=== PATIENT | female | born 1970 | race Caucasian/White ===

== ENCOUNTER 2017-12-17 12:21 | Emergency (ER) | payer OTHER ==
[2017-12-17 12:21] VITALS: BMI 29.2
[2017-12-17 12:28] VITALS: TEMP 97.8; O2SAT 98
[2017-12-17 12:31] VITALS: RESP 18
[2017-12-17] MEDS ORDERED: Sodium Chloride 0.9% 1,000 ML IV SCH (13:15)
[2017-12-17 13:23] LABS: BASO # 0.04 K/mm3 (0.0-2.0); BASO % 0.4 % (0.0-3.0); EOS # 0.6 (0.0-0.7); EOS % 6.2 % (1.5-5.0); GRAN # 5.23 (1.4-6.5); GRAN % 53.6 % (50.0-68.0); HEMOGLOBIN 13.1 g/dL (12.0-16.0); LYMPH # 3.5 (1.2-3.4); LYMPH % 35.6 % (22.0-35.0); MEAN CELL VOLUME 76.4 fl (80.0-105.0); MEAN PLATELET VOLUME 9.5 fl (7.0-11.0); MONO # 0.4 (0.1-0.6); MONO % 4.2 % (1.0-6.0); RBC 5.04 10^6/uL (3.5-6.1); RED CELL DISTRIBUTION WIDTH 13.3 % (11.5-14.5); WHITE BLOOD COUNT 9.8 10^3/ul (4.5-11.0)
[2017-12-17 13:33] LABS: ALB/GLOB RATIO 1.4 (1.1-1.8); ALBUMIN 4.2 g/dL (3.0-4.8); ALT/SGPT 28 U/L (7-56); AST/SGOT 25 U/L (14-36); BLOOD UREA NITROGEN 9 mg/dL (7-21); CALCIUM 9.6 mg/dL (8.4-10.5); GFR AFRICAN-AMERICAN > 60; GFR NON-AFRICAN AMERICAN > 60
--- NOTE | 2017-12-17 13:40 | ED PDOC ---
Arrival/HPI - General Historian: Patient - Critical Care Critical Care Minutes: 30 minutes <Master Plunkett - Last Filed: 12/17/17 17:04> <Patrice Pop - Last Filed: 12/17/17 19:58> - General Chief Complaint: Headache Time Seen by Provider: 12/17/17 12:40 - Critical Care Narrative Critical Care (Text): 12/17/17 13:32 This is a 47 yo F with PMH of HTN and DM II (not on insulin) who presents with complaint of headache upon awakening, elevated BP on subsequent self-checks ( started at systolic 120's-130s, ended at 160's systolic prior to no longer being able to obtain readings), and brief episode of nausea. As per patient, awoke with the headache, which is present bilaterally frontal region, but extends to occipital region and radiates down right lateral neck. Briefly nauseous on awakening as well, but she reports resolved within several minutes, no recurrence, and did not impede her ability to tolerate PO intake this AM. Reports compliance with home BP and DM meds (as listed below), and checks her BP daily, but admits to non-compliance with daily fingersticks to monitor blood glucose. Denies any recent hypotensive episodes with BP measurements at home, denies syncope/near-syncope, diaphoresis, photo-/phono-phobia, hx migraines, tinnitus, emesis, dysuria, hematuria, constipation, diarrhea, or fevers/chills. Denies any history of hypotensive episodes or hypoglycemic episodes. All other ROS in 12-system review negative. Patient reports headache persisted from awakening to dropping child off at school, to return to home and recheck of BP with systolic of 160's. At that time, she got in contact with her PMD's office, who instructed her to present to [facility] for further workup. PMH: as above PSH: denies Fam Hx: denies Social Hx: denies tobacco, alcohol, illicits PMD: Lady (Master Plunkett) Past Medical History - Cardiac Hx Cardiac Disorders: Yes Hx Hypertension: Yes - Pulmonary Hx Respiratory Disorders: No - Neurological Hx Neurological Disorder: No - HEENT Hx HEENT Disorder: No - Renal Hx Renal Disorder: No - Endocrine/Metabolic Hx Endocrine Disorders: Yes Hx Diabetes Mellitus Type 2: Yes - Hematological/Oncological Hx Blood Disorders: No - Integumentary Hx Dermatological Disorder: No - Musculoskeletal/Rheumatological Hx Musculoskeletal Disorders: No - Gastrointestinal Hx Gastrointestinal Disorders: No - Genitourinary/Gynecological Hx Genitourinary Disorders: No - Psychiatric Hx Psychophysiologic Disorder: No Hx Substance Use: No - Surgical History Hx Section: Yes <Master Plunkett - Last Filed: 12/17/17 17:04> - Provider Review Nursing Documentation Reviewed: Yes - Travel History Have you recently traveled outside [place] w/in the past 3 mons?: No - Past History Past History: No Previous - Infectious Disease Hx of Infectious Diseases: None - Reproductive Menopause: No Currently : Unknown <Patrice Pop - Last Filed: 12/17/17 19:58> Family/Social History Family/Social History: No Known Family HX Smoking Status: Never Smoked Hx Alcohol Use: No Hx Substance Use: No <Master Plunkett - Last Filed: 12/17/17 17:04> - Physician Review Nursing Documentation Reviewed: Yes Hx Substance Use Treatment: No <Patrice Pop - Last Filed: 12/17/17 19:58> Allergies/Home Meds <Master Plunkett - Last Filed: 12/17/17 17:04> <Patrice Pop - Last Filed: 12/17/17 19:58> Allergies/Adverse Reactions: Allergies No Known Allergies Allergy (Verified 12/17/17 12:24) Home Medications: Home Meds Medication Instructions Recorded Confirmed GlipiZIDE [Glucotrol] 1 tab PO BID 08/12/13 12/17/17 Metformin HCl 1 tab PO BID 08/12/13 12/17/17 Valsartan/Hydrochlorothiazide 1 tab PO AC 08/12/13 12/17/17 [Valsartan-Hctz 160-12.5 mg Tab] SITagliptin [Januvia] 50 mg PO DAILY 12/17/17 12/17/17 Review of Systems - Physician Review All systems were reviewed & negative as marked: Yes (as per HPI) <Master Plunkett - Last Filed: 12/17/17 17:04> - Review of Systems Respiratory: absent: SOB Cardiovascular: absent: Chest Pain Gastrointestinal: absent: Abdominal Pain Neurological: Headache <Patrice Pop - Last Filed: 12/17/17 19:58> Physical Exam Vital Signs Reviewed: Yes Temperature: Afebrile Blood Pressure: Hypertensive Pulse: Regular Respiratory Rate: Normal Appearance: Positive for: Well-Appearing, Non-Toxic, Comfortable Pain Distress: Mild Mental Status: Positive for: Alert and Oriented X 3 Finger Stick Blood Glucose: 166 - Systems Exam Head: Present: Atraumatic, Normocephalic Pupils: Present: PERRL. No: Sluggish, Non-Reactive Extroacular Muscles: Present: EOMI. No: Gaze Palsy, Entrapment Conjunctiva: Present: Normal. No: Injected, Icteric Mouth: Present: Moist Mucous Membranes, Normal Lips, Normal Tounge, Normal Teeth. No: Dry, Drooling Pharnyx: Present: Normal. No: ERYTHEMA, EXUDATE Nose (External): Present: Atraumatic. No: Abrasion, Laceration Nose (Internal): Present: Normal Inspection, No Active Bleeding. No: Epistaxis Neck: Present: Normal Range of Motion, Other (mild tenderness to palpation along right lateral aspect of neck, along region of sternocleidomastoid). No: JVD Respiratory/Chest: Present: Clear to Auscultation, Good Air Exchange. No: Respiratory Distress, Accessory Muscle Use, Wheezes, Decreased Breath Sounds, Rales, Retracting, Rhonchi, Tachypneic Cardiovascular: Present: Regular Rate and Rhythm, Normal S1, S2, Peripheal Pulses Present (+2 radials and dorsalis pedis bilaterally). No: Murmurs, Irregular Rhythm, Tachycardic, Bradycardic Abdomen: Present: Normal Bowel Sounds. No: Tenderness, Distention, Peritoneal Signs, Feeding Tubes Back: Present: Normal Inspection Upper Extremity: Present: Normal Inspection, Normal ROM, NORMAL PULSES. No: Cyanosis, Edema, Tenderness, Swelling, Erythema Lower Extremity: Present: Normal Inspection, NORMAL PULSES, Normal ROM. No: Edema, CALF TENDERNESS, Cyanosis, Tenderness, Swelling, Erythema Neurological: Present: GCS=15, Speech Normal, Motor Func Grossly Intact, Normal Sensory Function, Other (no facial asymmetry appreciated, no slurred speech, motor and sensory function grossly intact and equal in all testing, moving all extremities spontaneously without obvious focal deficit, no invoked dizziness with EOMI testing) Skin: Present: Warm, Dry, Normal Color. No: Rashes Lymphatic: No: Cervical Adenopathy Psychiatric: Present: Alert, Oriented x 3, Normal Insight, Normal Concentration , Normal Affect, Normal Mood <Master Plunkett - Last Filed: 12/17/17 17:04> <Patrice Pop - Last Filed: 12/17/17 19:58> Vital Signs Temp Pulse Resp BP Pulse Ox 12/17/17 17:00 75 18 118/83 98 12/17/17 15:08 79 18 148/86 98 12/17/17 12:31 97.8 F 89 18 150/95 H 98 12/17/17 12:25 97.8 F 89 17 150/95 H 98 Medical Decision Making <Master Plunkett - Last Filed: 12/17/17 17:04> Re-evaluation Time: 16:00 Reassessment Condition: Improved - Lab Interpretations I have reviewed the lab results: Yes Interpretation: All labs normal - RAD Interpretation Php Mysql Web Developer: Radiologist - EKG Interpretation Interpreted by ED Physician: Yes Type: 12 lead EKG <Patrice Pop - Last Filed: 12/17/17 19:58> ED Course and Treatment: 12/17/17 13:45 Ddx: Stress/Tension headache vs Vascular headache vs TIA, likely BP elevation 2/ 2 headache vs anxiety; unlikely stroke, unlikely hypertensive urgency Sent by PMD's office for elevated BP and headache, PMD's office concerned for stroke as per patient, but given lack of neurological findings, highly unlikely. CT head to rule out acute intracranial process, continue to monitor BP (may be elevated 2/2 anxiety). Will also obtain CBC, CMP, mag, phos. If CT head negative, then will given Reglan x1 and Toradol for possible vascular headache and reassess. Ordered fingerstick glucose to rule out hypoglycemic episode. 12/17/17 14:02 CT head negative for acute intracranial process. Ordered Reglan/Toradol, will reassess after administrate and determine disposition. 12/17/17 16:34 Patient reports resolution of symptoms, and BP on monitor now returned to pt's baseline (systolic 112 on last check). Patient feels that she is safe to return home. Discussed Case with pt's PMD, Dr. Narayanan. She requests Troponin x1, and if negative, agrees with discharge to home. Also requests referral for follow up with Dr. Piedra (Neuro), Dr. Ashley (Cardio), and herself if patient discharged. 12/17/17 17:06 Troponin negative. Patient to be discharged to home. Patient seen, reviewed, and discussed with attending, Dr. Pop. (Master Plunkett) Plan: likely vascular caused headache, unlikely bleed/TIA/CVA -- EKG -- CT head -- Labs -- Reglan, Toradol, and Sodium Chloride -- Reassess and disposition Progress Notes: In agreement with resident note, which includes further HPI details. Patient was seen and evaluated with resident, came up with plan and treatment together. I performed the hx and physical exam of the patient and discussed their mgt with the RESIDENT. I reviewed the RESIDENT's NOTE and agree with the assessment and plan of care. pt is doing well currently pt states her headache is easing NIH stroke scale ~ [address] Narayanan regarding pt's symptoms and ED dx findings; pt will f /u with her in the office as outpt and for outpt f/u as well pt is made aware of her medical results pt is encouraged fluid hydration pt will f/u as directed pt will be discharged home (Patrice Pop) - Lab Interpretations Lab Results: 12/17/17 13:15 12/17/17 13:15 Lab Results 12/17/17 14:00: Troponin I < 0.01 12/17/17 13:15: Sodium 140, Potassium 3.8, Chloride 100, Carbon Dioxide 28, Anion Gap 16, BUN 9, Creatinine 0.5 L, Est GFR ( Amer) > 60, Est GFR (Non -Af Amer) > 60, Random Glucose 164 H, Calcium 9.6, Phosphorus 3.5, Magnesium 1.8 , Total Bilirubin < 0.1 L, AST 25, ALT 28, Alkaline Phosphatase 51, Total Protein 7.2, Albumin 4.2, Globulin 3.0, Albumin/Globulin Ratio 1.4 12/17/17 13:15: WBC 9.8, RBC 5.04, Hgb 13.1, Hct 38.5, MCV 76.4 L, MCH 26.0, MCHC 34.0, RDW 13.3, Plt Count 321, MPV 9.5, Gran % 53.6, Lymph % (Auto) 35.6 H , Irion % (Auto) 4.2, Eos % (Auto) 6.2 H, Baso % (Auto) 0.4, Gran # 5.23, Lymph # (Auto) 3.5 H, Irion # (Auto) 0.4, Eos # (Auto) 0.6, Baso # (Auto) 0.04 12/17/17 13:02: POC Glucose (mg/dL) 166 H - RAD Interpretation Narrative RAD Interpretations (Text): 12/17/17 14:00 CT head: Creator : Sb Hector MD FINDINGS: HEMORRHAGE: No intracranial hemorrhage. BRAIN: No mass effect or edema. No atrophy or chronic microvascular ischemic changes. VENTRICLES: Unremarkable. No hydrocephalus. 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 This measures 6 x 20 mm PARANASAL SINUSES: Unremarkable as visualized. No significant inflammatory changes. MASTOID AIR CELLS: Unremarkable as visualized. No inflammatory changes. OTHER FINDINGS: None. IMPRESSION: No acute intracranial findings (Patrice Pop) Radiology Orders: 12/17/17 13:03 HEAD W/O CONTRAST [CT] Stat - EKG Interpretation EKG Interpretation (Text): 12/17/17 19:55 NSR at 85 bpm, normal axis, no ectopy, qs in leads III, inverted T in leads III/ V1, no st changes, ABNL EKG (Patrice Pop) - Medication Orders Current Medication Orders: Sodium Chloride (Sodium Chloride 0.9%) 1,000 mls @ 200 mls/hr IV .Q5H LIBRADO Last Admin: 12/17/17 13:23 Dose: 200 mls/hr eMAR Start Stop Document 12/17/17 13:23 HI (Rec: 12/17/17 13:23 HI [id number]) Intravenous Solution Start Date 12/17/17 Start Time 13:23 Discontinued Medications Ketorolac Tromethamine (Toradol) 15 mg IVP STAT STA Stop: 12/17/17 13:55 Last Admin: 12/17/17 14:22 Dose: 15 mg MAR Pain Assessment Document 12/17/17 14:22 HI (Rec: 12/17/17 14:30 HI [id number]) Pain Reassessment Is this a pain reassessment? No Sleep Is patient sleeping during reassessment? No Presence of Pain Presence of Pain Yes Location Pain Location [employer] Description Description Constant IVP Administration Document 12/17/17 14:22 HI (Rec: 12/17/17 14:30 HI [id number]) Charges for Administration # of IVP Administrations 1 Metoclopramide HCl (Reglan) 10 mg IVP STAT STA Stop: 12/17/17 13:55 Last Admin: 12/17/17 14:21 Dose: 10 mg IVP Administration Document 12/17/17 14:21 HI (Rec: 12/17/17 14:21 HI [id number]) Charges for Administration # of IVP Administrations 1 Disposition/Present on Arrival - Present on Arrival Any Indicators Present on Arrival: Yes History of DVT/PE: No History of Uncontrolled Diabetes: Yes Urinary Catheter: No History of Decub. Ulcer: No History Surgical Site Infection Following: None - Disposition Have Diagnosis and Disposition been Completed?: Yes Disposition Time: 17:07 Patient Plan: Discharge <Master Plunkett - Last Filed: 12/17/17 17:04> <Patrice Pop - Last Filed: 12/17/17 19:58> - Disposition Diagnosis: Headache, Elevated blood pressure, situational Disposition: HOME/ ROUTINE Patient Problems: Current Active Problems Problem Status Onset Elevated blood pressure, situational Acute Headache Acute Condition: GOOD Print Language: YORUBA Additional Instructions: You were seen in the emergency department for headache with elevated blood pressure and concurrent headache. As per your PMD, you were assessed for possible stroke vs TIA. The CT Scan of your head was negative for any acute findings, and your blood work was unremarkable. Your EKG was also unremarkable. As per your PMD, please follow up with Dr. Narayanan within one week , and also call and establish appointments for follow up with Dr. Piedra (Neuro ) and Dr. Ashley (Cardio). Please resume all home medications as previously scheduled. Please return to a hospital if you experience new or concerning symptoms. If you experience the following symptoms, return to a hospital immediately: -newly slurred speech or sudden inability to speak (either unable to say any words or consistently unable to say the words you want to say) -weakness or paralysis or extremities on one side or bilaterally -sudden loss of vision, either on one side or in both eyes -loss of control of bowels/bladder -loss of sensation (touch, pain, vibration) on one or both sides -sudden loss or significant decrease in gait (ability to walk) Referrals: Debbie Narayanan MD [Primary Care Provider] - Follow up with primary Phil Piedra MD [Staff Provider] - Follow up with primary (Referred by PMD for Headache, elevated BP (systolic up to 160's), and nausea concurrently) Gaurav Ashley MD [Staff Provider] - Follow up with primary (Referred by PMD for elevated BP (systolic to 160's) with concurrent headache) Forms: [facility] (Bel[place]ian), WORK NOTE
--- NOTE | 2017-12-17 13:40 | CT ---
PROCEDURE: CT HEAD WITHOUT CONTRAST. HISTORY: headache, elevated BP, nausea COMPARISON: None available. TECHNIQUE: Axial computed tomography images were obtained through the head/brain without intravenous contrast. Radiation dose: Total exam DLP = 937 mGy-cm. This CT exam was performed using one or more of the following dose reduction techniques: Automated exposure control, adjustment of the mA and/or kV according to patient size, and/or use of iterative reconstruction technique. FINDINGS: HEMORRHAGE: No intracranial hemorrhage. BRAIN: No mass effect or edema. No atrophy or chronic microvascular ischemic changes. VENTRICLES: Unremarkable. No hydrocephalus. 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 This measures 6 x 20 mm PARANASAL SINUSES: Unremarkable as visualized. No significant inflammatory changes. MASTOID AIR CELLS: Unremarkable as visualized. No inflammatory changes. OTHER FINDINGS: None. IMPRESSION: No acute intracranial findings
--- NOTE | 2017-12-17 16:13 | CARD ---
APPROVED REPORT EKG Measurement Heart [id number] IA [id number] <Conclusion> Normal sinus rhythm Possible IMI, age unknown
[2017-12-17 17:11] VITALS: BP 118/83; PULSE 75
== END 2017-12-17 17:19 | disposition home or self-care (01) ==
LOC: ED 12:21
DX: I10 Essential (primary) hypertension (principal); R51 Headache; E11.9 Type 2 diabetes mellitus without complications
CPT/HCPCS: 70450; 80053; 82948; 83735; 84100; 84484; 85025; 93005; 96374; 96375; 99285; J1885; J2765; J7030